=== PATIENT | female | born 1975 | race Two or more races ===

== ENCOUNTER 2017-03-27 22:03 | Emergency (ER) | payer OTHER ==
[~2017-03-27] VITALS: Ht 152.4 cm; Wt 72.6 kg
[2017-03-27] MEDS ORDERED: IBUPROFEN600 MG ORAL (23:56)
[2017-03-28] MEDS ORDERED: Ketorolac 60mg Inj IM ONE
[2017-03-28 00:10] VITALS: BP_SYST 1; BP_SYST 124; BP_DIAS 1; BP_DIAS 83
--- NOTE | 2017-03-28 00:44 | Emergency Room Report ---
History of Present Illness General Chief Complaint: Toothache Source: Patient Present Illness HPI [id number] presents with toothache to rigth lower posterior tooth. Started 4 days ago the night AFTER visit to dentist. Has had wisdom tooth extracted there. Has fillings in teeth in front of the area. C/o referred pain to right ear as well. Denies fever/chills, abscess in mouth. Took tylenol at home, no improvement. Allergies: Coded Allergies: MAGNESIUM (Verified Allergy, Unknown, 03/27/17) Patient History Past Medical History: none Past Surgical History: none Pertinent Family History: none Social History: Denies: alcohol use, drug use, smoking Last Menstrual Period: unk Now: No Immunizations: UTD Reviewed Nursing Documentation: PMH: Agreed, PSxH: Agreed Nursing Documentation-PMH Past Medical History: No History, Except For Review of Systems All Other Systems: negative except mentioned in HPI Physical Exam Vital Signs Date Time Temp Pulse Resp B/P Pulse Ox O2 Delivery O2 Flow Rate FiO2 03/27/17 22:23 98.2 74 18 124/83 98 Room Air Sp02 EP Interpretation: reviewed, normal General Appearance: normal inspection, well appearing, no apparent distress, alert, GCS 15, non-toxic Head: normocephalic, atraumatic Eyes: bilateral eye EOMI, bilateral eye PERRL ENT: normal ENT inspection, hearing grossly normal, normal pharynx, no angioedema, normal voice, TMs + canals normal, other - Right lower teeth: multiple fillings. Hole seen where wisdom teeth distantly extracted. No abscess on gums or in cheek. No bola-apical abscess. Mild ttp along teeth. Neck: normal inspection, full range of motion, supple, no bony tend Respiratory: normal inspection, lungs clear, normal breath sounds, no respiratory distress, no retraction, no wheezing Cardiovascular #1: regular rate, rhythm, no edema Gastrointestinal: normal inspection, normal bowel sounds, non tender, soft, no guarding, no hernia Genitourinary: no CVA tenderness Musculoskeletal: normal inspection, back normal, normal range of motion, Chuy' s Sign negative Neurologic: normal inspection, alert, oriented x3, responsive, junior sales representative III-XII nml as tested, motor strength/tone normal, speech normal Psychiatric: normal inspection, judgement/insight normal, mood/affect normal Skin: normal inspection, normal color, no rash Lymphatic: normal inspection Medical Decision Making Diagnostic Impression: Primary Impression: Toothache ER Course Toothache - Likely fillings - No abscess or signs of infection - Recommended OTC meds and dental followup DC home Last Vital Signs Date Time Temp Pulse Resp B/P Pulse Ox O2 Delivery O2 Flow Rate FiO2 03/28/17 00:10 98.2 18 124/83 98 Room Air 03/27/17 22:23 74 Status: improved Disposition: HOME, SELF-CARE Condition: Improved Scripts Ibuprofen* (MOTRIN*) 600 Mg Tablet 600 MG ORAL THREE TIMES A DAY for toothache for 7 Days, #30 TAB 0 Refills Prov: DANIAL CASILLAS M.D. 03/27/17 Referrals: [facility]ERR[facility] (PCP) Patient Instructions: Dental Pain DANIAL CASILLAS M.D. Mar 28, 2017 00:44
== END 2017-03-28 00:10 | disposition home or self-care (01) ==
LOC: EMR 22:30
DX: K08.89 Other specified disorders of teeth and supporting structures (principal); Z91.048 Other nonmedicinal substance allergy status
CPT/HCPCS: 96372; 99283

== ENCOUNTER 2017-05-24 23:54 | Emergency (ER) | payer OTHER ==
[~2017-05-24] VITALS: Ht 152.4 cm; Wt 70.3 kg
[~2017-05-24 23:54] MED LIST: IBUPROFEN600 MG ORAL
[2017-05-25] MEDS ORDERED: ACETAMINOPHEN325 M1 ORAL (00:11)
[2017-05-25] MEDS ORDERED: LEVOTHYROXINE125 MCG ORAL (00:12)
[2017-05-25 00:15] VITALS: BP 137/97
--- NOTE | 2017-05-25 00:23 | Emergency Room Report ---
History of Present Illness General Chief Complaint: Abdominal Pain Source: Patient Present Illness HPI Patient presents with complaints of right-sided upper quadrant pain with radiation to the right midaxillary area Patient reports that she was told she had gallstones about 2 years ago and has had off-and-on pain in that area Patient was attempting to be worked up as outpatient and had surgical consultation but has not had any procedures performed Pain came on this evening 8 sharp Denies any chest pain or shortness of breath patient has nausea but denies vomiting Allergies: Coded Allergies: MAGNESIUM (Verified Allergy, Unknown, 03/27/17) Patient History Past Medical History: see triage record Pertinent Family History: none Last Menstrual Period: 05/24/17 Now: No Reviewed Nursing Documentation: PMH: Agreed, PSxH: Agreed Review of Systems All Other Systems: negative except mentioned in HPI Physical Exam Vital Signs Date Time Temp Pulse Resp B/P (MAP) Pulse Ox O2 Delivery O2 Flow Rate FiO2 05/25/17 00:06 97.9 62 20 140/97 100 Room Air Sp02 EP Interpretation: reviewed, normal General Appearance: well appearing, no apparent distress Head: normocephalic, atraumatic Eyes: bilateral eye PERRL, bilateral eye EOMI ENT: hearing grossly normal, normal pharynx, TMs + canals normal, uvula midline Neck: full range of motion, supple, no meningismus, no bony tend Respiratory: lungs clear, normal breath sounds, no rhonchi, no respiratory distress, no retraction, no accessory muscle use Cardiovascular #1: normal peripheral pulses, regular rate, rhythm, no edema, no gallop, no JVD, no murmur Gastrointestinal: normal bowel sounds, non tender - However subjectively points to the right upper quadrant, soft, no mass, no organomegaly, non- distended, no guarding, no hernia, no pulsatile mass, no rebound Genitourinary: no CVA tenderness Musculoskeletal: normal inspection Neurologic: oriented x3, responsive, insurance claim representative III-XII nml as tested, motor strength/ tone normal, sensory intact Psychiatric: mood/affect normal Skin: normal color, no rash, warm/dry, palpation normal Lymphatic: normal inspection, no adenopathy Medical Decision Making Diagnostic Impression: Primary Impression: Biliary colic Additional Impression: UTI (urinary tract infection) ER Course With the history exam and presentation, multiple differentials considered, including but not limited to appendicitis, gastritis, cholecystitis, diverticulitis Patient's baseline blood work including liver function tests are benign Patient has done better throughout her stay Urine sample did show evidence of bacteria however and patient was placed on antibiotics and will have close outpatient followup Labs Test 05/25/17 00:20 05/25/17 00:30 Urine Color Pale yellow Urine Appearance Clear Urine pH 6 (4.5-8.0) Urine Specific [place] 1.010 (1.005-1.035) Urine Protein Negative (NEGATIVE) Urine Glucose (UA) Negative (NEGATIVE) Urine Ketones Negative (NEGATIVE) Urine Occult Blood 2+ (NEGATIVE) Urine Nitrite Negative (NEGATIVE) Urine Bilirubin Negative (NEGATIVE) Urine Urobilinogen Normal MG/DL (0.0-1.0) Urine Leukocyte Esterase 3+ (NEGATIVE) Urine RBC 5-10 /HPF (0 - 2) Urine WBC 40-60 /HPF (0 - 2) Urine Squamous Epithelial Cells Few /LPF (NONE/OCC) Urine Bacteria Few /HPF (NONE) Urine Yeast Moderate /HPF (NONE) Urine HCG, Qualitative Negative White Blood Count 7.6 K/UL (4.8-10.8) Red Blood Count 4.59 M/UL (4.20-5.40) Hemoglobin 13.9 G/DL (12.0-16.0) Hematocrit 41.0 % (37.0-47.0) Mean Corpuscular Volume 90 FL (80-99) Mean Corpuscular Hemoglobin 30.4 PG (27.0-31.0) Mean Corpuscular Hemoglobin Concent 33.9 G/DL (32.0-36.0) Red Cell Distribution Width 11.3 % (11.6-14.8) Platelet Count 277 K/UL (150-450) Mean Platelet Volume 7.6 FL (6.5-10.1) Neutrophils (%) (Auto) 51.5 % (45.0-75.0) Lymphocytes (%) (Auto) 31.0 % (20.0-45.0) Monocytes (%) (Auto) 8.5 % (1.0-10.0) Eosinophils (%) (Auto) 7.8 % (0.0-3.0) Basophils (%) (Auto) 1.2 % (0.0-2.0) Sodium Level 140 mEQ/L (135-145) Potassium Level 3.6 mEQ/L (3.4-4.9) Chloride Level 104 mEQ/L (98-107) Carbon Dioxide Level 23 mEQ/L (20-30) Anion Gap 13 (5-15) Blood Urea Nitrogen 13 mg/dL (7-23) Creatinine 1.0 mg/dL (0.5-0.9) Estimat Glomerular Filtration Rate > 60 mL/min (>60) Glucose Level 94 mg/dL (74-106) Calcium Level 9.5 mg/dL (8.6-10.2) Total Bilirubin 0.3 mg/dL (0.0-1.2) Aspartate Amino Transf (AST/SGOT) 26 U/L (5-40) Alanine Aminotransferase (ALT/SGPT) 37 U/L (3-33) Alkaline Phosphatase 80 U/L (35-104) Total Protein 7.1 g/dL (6.6-8.7) Albumin 4.4 g/dL (3.5-5.2) Globulin 2.7 g/dL Albumin/Globulin Ratio 1.6 (1.0-2.7) Lipase 57 U/L (< 60) Last Vital Signs Date Time Temp Pulse Resp B/P (MAP) Pulse Ox O2 Delivery O2 Flow Rate FiO2 05/25/17 00:06 97.9 62 20 140/97 100 Room Air Status: improved Disposition: HOME, SELF-CARE Condition: Improved Scripts Hydrocodone Bit/Acetaminophen 5-325* (NORCO 5-325*) 1 Each Tablet 1 TAB ORAL Q6H Y for For Pain, #10 TAB 0 Refills Prov: DIXIE LÓPEZ D.O. 05/25/17 Cephalexin* (KEFLEX*) 500 Mg Capsule 500 MG ORAL Q6H, #28 CAP 0 Refills Prov: DIXIE LÓPEZ D.O. 05/25/17 Additional Instructions: Patient is provided with the discharge instructions notified to follow up with primary doctor in the next 2-3 days otherwise return to the er with any worsening symptoms. Please note that this report is being documented using [employer] technology. This can lead to erroneous entry secondary to incorrect interpretation by the dictating instrument. DIXIE LÓPEZ D.O. May 25, 2017 00:23
[2017-05-25] MEDS ORDERED: Norco 10mg/325mg tab ORAL ONE (00:30)
[2017-05-25 00:51] LABS: APPEARANCE,URINE CLEAR; KETONES,URINE NEGATIVE (NEGATIVE); LEUKOCYTE ESTERASE ,URINE 3+ (NEGATIVE); NITRITE,URINE NEGATIVE (NEGATIVE); PH,URINE 6 (4.5-8.0); PROTEIN,URINE NEGATIVE (NEGATIVE); UROBILINOGEN,URINE NORMAL MG/DL (0.0-1.0)
[2017-05-25 00:54] LABS: BASOPHILS % (AUTO) 1.2 % (0.0-2.0); EOSINOPHILS % (AUTO) 7.8 % (0.0-3.0); MEAN CORPUSCULAR HEMOGLOBIN 30.4 PG (27.0-31.0); MEAN CORPUSCULAR HGB CONC 33.9 G/DL (32.0-36.0); MEAN CORPUSCULAR VOLUME 90 FL (80-99); MEAN PLATELET VOLUME 7.6 FL (6.5-10.1); MONOCYTES % (AUTO) 8.5 % (1.0-10.0); NEUTROPHILS % (AUTO) 51.5 % (45.0-75.0); PLATELET COUNT 277 K/UL (150-450); RED BLOOD COUNT 4.59 M/UL (4.20-5.40); RED CELL DISTRIBUTION WIDTH 11.3 % (11.6-14.8); WHITE BLOOD COUNT 7.6 K/UL (4.8-10.8)
[2017-05-25 00:57] LABS: BACTERIA,URINE FEW /HPF; SQUAMOUS EPITHELIAL CELL,UR FEW /LPF (NONE/OCC); WBC,URINE 40-60 /HPF (0 - 2); YEAST,URINE MODERATE /HPF
[2017-05-25 01:07] LABS: ALANINE AMINOTRANSFERASE 37 U/L (3-33); ALBUMIN/GLOBULIN RATIO 1.6 (1.0-2.7); ANION GAP 13 (5-15); ASPARTATE AMINO TRANSFERASE 26 U/L (5-40); CALCIUM 9.5 mg/dL (8.6-10.2); CARBON DIOXIDE 23 mEQ/L (20-30); CHLORIDE 104 mEQ/L (98-107); GLOMERULAR FILTRATION RATE > 60 mL/min (>60); HEMOLYSIS 4; LIPASE 57 U/L (< 60); POTASSIUM 3.6 mEQ/L (3.4-4.9); SODIUM 140 mEQ/L (135-145); TOTAL PROTEIN 7.1 g/dL (6.6-8.7)
[2017-05-25] MEDS ORDERED: NORCO 5-325 TA1 EACH ORAL (01:53)
[2017-05-25] MEDS ORDERED: KEFLEX500 MG ORAL (01:53)
[2017-05-25] MEDS ORDERED: Cephalexin 500mg cap ORAL ONE (02:00)
[2017-05-25 02:25] VITALS: BP 128/78
[2017-05-25 02:29] VITALS: BP 128/78
== END 2017-05-25 02:29 | disposition home or self-care (01) ==
LOC: EMR 05-25 00:40
DX: K80.50 Calculus of bile duct without cholangitis or cholecystitis without obstruction (principal); N39.0 Urinary tract infection, site not specified; R10.11 Right upper quadrant pain; Z88.8 Allergy status to other drugs, medicaments and biological substances
CPT/HCPCS: 36415; 80053; 81003; 81025; 83690; 85025; 87086; 99284

== ENCOUNTER 2017-08-07 08:37 | Emergency (ER) | payer OTHER ==
[~2017-08-07] VITALS: Ht 157.5 cm; Wt 68.9 kg
[~2017-08-07 08:37] MED LIST changes: +ACETAMINOPHEN325 M1 ORAL; +KEFLEX500 MG ORAL; +LEVOTHYROXINE125 MCG ORAL; +NORCO 5-325 TA1 EACH ORAL
--- NOTE | 2017-08-07 08:42 | Emergency Room Report ---
History of Present Illness General Chief Complaint: Abdominal Pain Source: Patient Present Illness HPI Patient is a 41-year-old female brought in by EMS after increased right-sided flank pain. Patient onset of pain approximately one hour prior to arrival. Patient prior history of gallstone disease. Patient had nausea without any vomiting. Patient reports having prior history of ultrasound approximately 4 months ago. She denied having any black or bloody stools or hematemesis. Patient had been taking ibuprofen Allergies: Coded Allergies: MAGNESIUM (Verified Allergy, Unknown, 03/27/17) Patient History Past Medical History: see triage record Now: No Reviewed Nursing Documentation: PMH: Agreed, PSxH: Agreed Nursing Documentation-PMH Past Medical History: No Stated History Review of Systems All Other Systems: negative except mentioned in HPI Physical Exam Vital Signs Date Time Temp Pulse Resp B/P (MAP) Pulse Ox O2 Delivery O2 Flow Rate FiO2 08/07/17 08:30 98.1 86 18 140/80 99 Room Air Sp02 EP Interpretation: reviewed, normal General Appearance: normal inspection, well appearing, no apparent distress, alert, GCS 15, non-toxic Head: atraumatic ENT: normal ENT inspection, hearing grossly normal, normal voice Neck: normal inspection, full range of motion, supple, no bony tend Respiratory: normal inspection, lungs clear, normal breath sounds, no respiratory distress, no retraction, no wheezing Cardiovascular #1: regular rate, rhythm, no edema Gastrointestinal: normal inspection, normal bowel sounds, non tender, soft, no guarding, no hernia Genitourinary: no CVA tenderness Musculoskeletal: normal inspection, back normal, normal range of motion Neurologic: normal inspection, alert, oriented x3, responsive, lathe machinist III-XII nml as tested, speech normal Psychiatric: normal inspection, judgement/insight normal, mood/affect normal Skin: normal inspection, normal color, no rash Medical Decision Making Diagnostic Impression: Primary Impression: Abdominal pain Additional Impression: UTI (urinary tract infection) ER Course Patient presented for abdominal pain. Differential diagnoses included ischemic bowel, appendicitis, perforated viscus, abdominal aortic aneurysm, inferior myocardial infarction, viral gastroenteritis. Because of complexity of patient' s case laboratory testing and imaging studies were ordered. Abdominal ultrasound showed no evident gallstones or gallbladder distention, kidney showed no hydronephrosis.Patient was given pain medications. She was started given prescription for antibiotics for urinary tract infection. The patient is advised to follow up with primary care doctor in 1-2 days. Patient is advised to return if any worsening condition or if any changes in status that are concerning. Last Vital Signs Date Time Temp Pulse Resp B/P (MAP) Pulse Ox O2 Delivery O2 Flow Rate FiO2 08/07/17 08:30 98.1 86 18 140/80 99 Room Air Status: improved Disposition: HOME, SELF-CARE Condition: Stable Scripts Cephalexin* (KEFLEX*) 500 Mg Capsule 500 MG ORAL Q6H, #28 CAP 0 Refills Prov: Len Kam 08/07/17 Dicyclomine Hcl* (BENTYL*) 10 Mg Capsule 10 MG ORAL FOUR TIMES A DAY, #30 CAP Prov: Len Kam 08/07/17 Ondansetron (Zofran) 4 Mg Tablet 4 MG ORAL Q6H Y for Nausea & Vomiting, #30 TAB 0 Refills Prov: Len Kam 08/07/17 Len Kam Aug 07, 2017 08:42
[2017-08-07] MEDS ORDERED: Morphine Sulfate 4mg/ml Inj IVP ONE ×2 (08:45→14:00)
[2017-08-07 09:09] LABS: BASOPHILS % (AUTO) 0.8 % (0.0-2.0); EOSINOPHILS % (AUTO) 1.3 % (0.0-3.0); LYMPHOCYTES % (AUTO) 23.2 % (20.0-45.0); MEAN CORPUSCULAR HEMOGLOBIN 29.1 PG (27.0-31.0); MEAN CORPUSCULAR HGB CONC 32.9 G/DL (32.0-36.0); MEAN CORPUSCULAR VOLUME 89 FL (80-99); MEAN PLATELET VOLUME 7.3 FL (6.5-10.1); MONOCYTES % (AUTO) 6.9 % (1.0-10.0); NEUTROPHILS % (AUTO) 67.9 % (45.0-75.0); PLATELET COUNT 279 K/UL (150-450); RED BLOOD COUNT 5.18 M/UL (4.20-5.40); RED CELL DISTRIBUTION WIDTH 11.2 % (11.6-14.8); WHITE BLOOD COUNT 7.5 K/UL (4.8-10.8)
[2017-08-07 09:23] LABS: ANION GAP 12 mmol/L (5-15); CARBON DIOXIDE 22 MMOL/L (21-32); CHLORIDE 105 MMOL/L (98-107); GLOMERULAR FILTRATION RATE > 60 mL/min (>60); POTASSIUM 3.3 MMOL/L (3.5-5.1); SODIUM 139 MMOL/L (136-145)
[2017-08-07 09:30] LABS: ALANINE AMINOTRANSFERASE 44 U/L (12-78); ALBUMIN/GLOBULIN RATIO 1.2 (1.0-2.7); ASPARTATE AMINO TRANSFERASE 24 U/L (15-37); LIPASE 166 U/L (73-393); TOTAL PROTEIN 7.4 G/DL (6.4-8.2)
[2017-08-07] MEDS ORDERED: Ketorolac 30mg Inj IV ONE (09:30)
[2017-08-07 10:45] LABS: APPEARANCE,URINE SLIGHTLY CLOUDY; KETONES,URINE 2+ (NEGATIVE); LEUKOCYTE ESTERASE ,URINE 2+ (NEGATIVE); NITRITE,URINE NEGATIVE (NEGATIVE); PH,URINE 8 (4.5-8.0); PROTEIN,URINE 2+ (NEGATIVE); UROBILINOGEN,URINE 1 MG/DL (0.0-1.0)
[2017-08-07 10:57] LABS: BACTERIA,URINE FEW /HPF; SQUAMOUS EPITHELIAL CELL,UR MODERATE /LPF (NONE/OCC)
[2017-08-07 11:22] VITALS: BP 130/82
[2017-08-07] MEDS ORDERED: ZOFRAN4 MG ORAL (13:50)
[2017-08-07] MEDS ORDERED: KEFLEX500 MG ORAL (13:50)
[2017-08-07] MEDS ORDERED: BENTYL10 MG ORAL (13:50)
[2017-08-07 14:22] VITALS: BP 132/81
[2017-08-07 15:21] VITALS: BP 126/91
[2017-08-07 15:27] VITALS: BP 126/91
--- NOTE | 2017-08-07 16:54 | Diagnostic Imaging Report ---
Indication: Right upper quadrant pain and nausea Technique: Saeed-scale and duplex images of the upper abdomen were obtained Comparison: None Findings: Gallbladder is unremarkable, without stones, wall thickening, nor pericholecystic fluid. However, technologist reports the sonographic Arce sign is positive Common bile duct measures 6 mm in diameter. No intrahepatic biliary ductal dilatation. Liver demonstrates normal echogenicity, no focal abnormality. Portal vein and hepatic veins are patent. The pancreas is poorly visualized due to overlying bowel gas Spleen is unremarkable. Left kidney measures 11 cm in length. Right kidney measures 10.9 cm length. Both kidneys demonstrate normal echogenicity. There is no hydronephrosis. Right kidney demonstrates a 1.5 cm upper pole parapelvic cyst. Left kidney demonstrates a 1 cm upper pole parapelvic cyst . Abdominal aorta is partially obscured by bowel gas, visualized portions are non-aneurysmal . Impression: Negative for gallstones or dilated ducts. Absent gallbladder wall thickening. However, positive sonographic Arce's sign is reported by the technologist, does raise some concern for acute acalculous cholecystitis. Correlation with clinical findings is recommended. Consider hepatobiliary nuclear medicine scan for further evaluation if there is high clinical suspicion Note suboptimal visualization of the pancreas and abdominal aorta Incidental finding of bilateral renal parapelvic cysts
== END 2017-08-07 15:29 | disposition home or self-care (01) ==
LOC: EDBD 08:37 → EDUNIT# 09:02 → EMR 09:02
DX: R10.9 Unspecified abdominal pain (principal); N39.0 Urinary tract infection, site not specified; Z88.8 Allergy status to other drugs, medicaments and biological substances
CPT/HCPCS: 36415; 76700; 80053; 81003; 81025; 83690; 85025; 85610; 85730; 96374; 96375; 99284; J1885; J2270; J2405

== ENCOUNTER 2018-02-22 13:46 | Emergency (ER) | payer OTHER ==
[~2018-02-22] VITALS: Ht 154.9 cm; Wt 74.8 kg
[~2018-02-22 13:46] MED LIST changes: +BENTYL10 MG ORAL; +ZOFRAN4 MG ORAL
--- NOTE | 2018-02-22 14:11 | Emergency Room Report ---
History of Present Illness General Chief Complaint: Sore Throat Source: Patient Present Illness HPI 42-year-old female patient presents ER complaining of throat pain for the past 5 days. Reports sick contacts at home with similar symptoms 1-2 weeks ago. Denies cough. denies other acute symptoms. Reports difficulty with swallowing , reports last ate meal 2 hours ago. Reports history of hyperthyroidism, states she has follow-up appointments with her physician for repeat ultrasound imaging every 6 months.reports contacted her primary care provider who instructed her to report to ER. Denies fever, chest pain, shortness of breath. Also complains of right earache. Denies vertigo. Denies ear drainage. Denies loss of hearing. Denies vision changes. Allergies: Coded Allergies: MAGNESIUM (Verified Allergy, Unknown, 03/27/17) Patient History Past Medical History: see triage record Last Menstrual Period: 05/03/17 Now: No Reviewed Nursing Documentation: PMH: Agreed; PSxH: Agreed Nursing Documentation-PMH Past Medical History: No History, Except For Review of Systems All Other Systems: negative except mentioned in HPI Physical Exam Vital Signs Date Time Temp Pulse Resp B/P (MAP) Pulse Ox O2 Delivery O2 Flow Rate FiO2 02/22/18 13:53 98.1 96 16 125/89 97 Room Air 98.1 Sp02 EP Interpretation: reviewed, normal General Appearance: well appearing, no apparent distress, alert, GCS 15, non- toxic Head: normocephalic, atraumatic Eyes: bilateral eye normal inspection, bilateral eye PERRL ENT: hearing grossly normal, normal pharynx, no angioedema, normal voice, TMs + canals normal - no effusion, uvula midline, moist mucus membranes Neck: full range of motion, no bony tend, tender lateral Respiratory: lungs clear, normal breath sounds, no rhonchi, no respiratory distress, no accessory muscle use, no wheezing, speaking full sentences, other - no stridor Cardiovascular #1: regular rate, rhythm, no edema Musculoskeletal: back normal, digits/nails normal, gait/station normal, normal range of motion, non-tender Neurologic: alert, oriented x3, responsive, motor strength/tone normal, sensory intact Psychiatric: mood/affect normal Medical Decision Making PA Attestation Dr. Suarez is my supervising Physician whom patient management has been discussed with. Diagnostic Impression: Primary Impression: Multiple thyroid nodules Additional Impressions: Sore throat Ear ache ER Course Pt presents to ED c/o sore throat and earache. DDX considered but are not limited to pharyngitis, laryngitis, URI, peritonsillar abscess, tonsillitis. Low suspicion for peritonsillar abscess, no neck stiffness, no hot potato voice , no stridor. Patient able to eat and drink without difficulty, no stridor, low suspicion for protruding mass or esophageal dysmotility. VITAL SIGNS are WNL, patient is afebrile. ordered thyroid ultrasound, Tylenol for pain ER COURSE: Thyroid US shows two nodules, unlikely cause of symptoms, Followup with PCP. Patient's physical exam benign, lungs clear to auscultation, no pharyngeal erythema or tonsillar exudates. TMs nonerythematous, no effusion, light reflex intact, no TM perforation, bilaterally. No maxillary or frontal sinus TTP bilaterally. Due to sick contacts recently with similar symptoms, likely viral cause of nature. Informed patient that congestion symptoms likely related to possible eustachian tube disfunction, likely leading to symptoms of ear fullness and possible sore throat. Uvula midline, no stridor, low suspicion for peritonsillar abscess. Will treat patient symptomatically. Salt water gargles for sore throat. Follow-up with primary care doctor and request referral to ENT as needed. Discuss further treatment and management at that time. Patient resting comfortably in no acute distress. patient does not have any difficulty breathing, patient talking states she is able to eat and drink without difficulty. Patient okay for discharge to home. F/u with PCP, discuss referral to thyroid specialist. DISCHARGE: Rx provided for Sudafed Salt water gargles Rx provided for Tylenol for pain symptoms At this time pt is stable for d/c to home. Patient is resting comfortably, in no acute distress, nontoxic appearing, talking without difficulty. Will provide with patient care instructions and any necessary prescriptions. Patient to take medication as instructed. Care plan and follow-up instructions provided. Patient questions asked and answered. Patient instructed to follow-up with primary care provider in 3 - 5 days. ER precautions given. Patient instructed to return to ER immediately for any new or worsening of symptoms including but not limited to intractable vomiting, difficulty breathing, inability to eat. - Please note that this Emergency Department Report was dictated using [employer] technology software, occasionally this can lead to erroneous entry secondary to interpretation by the dictation equipment. CT/MRI/US Diagnostic Results CT/MRI/US Diagnostic Results : Imaging Test Ordered: Thyroid US Impression diffusely hypoechoic thyroid, nonspecific, could indicate recent or remote thyroiditis To right thyroid nodules. These are both TI-RADS 3 lesions. As both are under 1.5 cm, no follow-up is necessary, per TI-RADS criteria. Last Vital Signs Date Time Temp Pulse Resp B/P (MAP) Pulse Ox O2 Delivery O2 Flow Rate FiO2 02/22/18 13:53 98.1 96 16 125/89 97 Room Air 98.1 Disposition: HOME, SELF-CARE Condition: Stable Scripts Pseudoephedrine Hcl* (SUDAFED*) 30 Mg Tablet 30 MG PO Q6H, #24 TAB Prov: Rosendo Zuluaga 02/22/18 Acetaminophen* (TYLENOL EXTRA STRENGTH*) 500 Mg Tablet 500 MG ORAL Q8H PRN for Prn Headache/Temp > 101, #30 TAB 0 Refills Prov: Rosendo Zuluaga 02/22/18 Patient Instructions: Earache, Sore Throat, Thyroid Nodule Additional Instructions: Followup with primary care provider in 3 -5 days. Followup with thyroid specialist. Take medications as directed. Salt water gargles. Patient questions asked and answered. ER precautions given, patient instructed to return to ER immediately for any new or worsening of symptoms. Rosendo Zuluaga Feb 22, 2018 14:11
[2018-02-22] MEDS ORDERED: Acetaminophen 500mg (ES) tab ORAL ONE ×2 (14:15)
[2018-02-22] MEDS ORDERED: Lidocaine 2% Visc 15ml soln ORAL ONE (14:15)
[2018-02-22 14:57] VITALS: BP 125/89
--- NOTE | 2018-02-22 15:18 | Diagnostic Imaging Report ---
Indication: Sore throat, intermittent throat pain x6 months Technique: Grayscale and duplex images of the thyroid Comparison: Findings: Right thyroid lobe measures 2.9 cm length x 1.2 cm AP. Left thyroid lobe measures 2.5 cm length x 1.3 cm AP. Both thyroid lobes demonstrate diffusely decreased echogenicity. To adjacent nodules are seen in the interpolar region of the right thyroid lobe. The larger measures 11 x 9 mm, smaller 9 x 8 mm. Both of these are solid, hypoechoic, wider than tall, with smooth margins and no calcifications. Impression: Diffusely hypoechoic thyroid, nonspecific, could indicate recent or remote thyroiditis 2 right thyroid nodules. These are both TI-RADS 3 lesions. As both are under 1.5 cm, no follow-up is necessary, per TI-RADS criteria
[2018-02-22] MEDS ORDERED: TYLENOL EXTRA500 MG ORAL (15:29)
[2018-02-22] MEDS ORDERED: PSEUDOEPHEDRINE30 MG PO (15:35)
[2018-02-22 15:49] VITALS: BP 125/89
== END 2018-02-22 15:51 | disposition home or self-care (01) ==
LOC: EMR 14:01
DX: E04.2 Nontoxic multinodular goiter (principal); R07.0 Pain in throat; H92.01 Otalgia, right ear
CPT/HCPCS: 76536; 99284